=== PATIENT | female | born 1980 | race African-American/Black ===

== ENCOUNTER 2017-01-28 16:58 | Emergency (ER) | payer OTHER ==
[~2017-01-28] VITALS: Ht 172.7 cm; Wt 82.0 kg
[~2017-01-28 16:58] MED LIST: METH250T11
[2017-01-28 17:00] VITALS: BP 144/77
== END 2017-01-28 19:30 | disposition left against medical advice (07) ==
LOC: ER 16:59
DX: F10.129 Alcohol abuse with intoxication, unspecified (principal); Z53.21 Procedure and treatment not carried out due to patient leaving prior to being seen by health care provider

== ENCOUNTER 2017-03-10 00:41 | Emergency (ER) | payer OTHER | END 2017-03-10 01:00 | disposition left against medical advice (07) | LOC: ER 00:57 | DX: R41.82 Altered mental status, unspecified (principal); Z53.21 Procedure and treatment not carried out due to patient leaving prior to being seen by health care provider ==

== ENCOUNTER 2017-03-28 15:59 | Emergency (ER) | payer OTHER | END 2017-03-28 20:00 | disposition left against medical advice (07) | LOC: ER 19:59 | DX: R05 Cough (principal); Z53.21 Procedure and treatment not carried out due to patient leaving prior to being seen by health care provider ==

== ENCOUNTER 2017-05-03 18:21 | Emergency (ER) | payer OTHER ==
[~2017-05-03] VITALS: Ht 170.2 cm; Wt 110.0 kg
[2017-05-03 22:02] VITALS: BP 122/67
== END 2017-05-03 22:06 | disposition home or self-care (01) ==
LOC: ER 18:36
DX: F10.129 Alcohol abuse with intoxication, unspecified (principal); Y90.6 Blood alcohol level of 120-199 mg/100 ml; G92 Toxic encephalopathy; F17.210 Nicotine dependence, cigarettes, uncomplicated
CPT/HCPCS: 36415; 99283; G0482

== ENCOUNTER 2017-05-19 00:58 | Emergency (ER) | payer OTHER ==
[~2017-05-19] VITALS: Ht 170.2 cm; Wt 77.0 kg
[2017-05-19 01:21] VITALS: BP 134/84
== END 2017-05-19 02:05 | disposition left against medical advice (07) ==
LOC: ER 00:58
DX: F10.10 Alcohol abuse, uncomplicated (principal); Z53.21 Procedure and treatment not carried out due to patient leaving prior to being seen by health care provider

== ENCOUNTER 2017-06-23 19:28 | Emergency (ER) | payer OTHER ==
[~2017-06-23] VITALS: Ht 170.2 cm; Wt 89.0 kg
[2017-06-23] MEDS ORDERED: CYANOCOBALAMIN 1000MCG/ML VIAL IM ONE (21:30)
[2017-06-23] MEDS ORDERED: SODIUM CHLORIDE 0.9% 1,000 ML IV ONE (21:30)
[2017-06-23 21:46] LABS: CLARITY URINE CLOUDY (CLEAR); COLOR URINE YELLOW (YELLOW); GLUCOSE URINE NEGATIVE (NEGATIVE); KETONES URINE NEGATIVE (NEGATIVE); LEUKOCYTE ESTERASE URINE TRACE (NEGATIVE); NITRITE URINE NEGATIVE (NEGATIVE); OCCULT BLOOD URINE NEGATIVE (NEGATIVE); PROTEIN URINE NEGATIVE (NEGATIVE); SPECIFIC GRAVITY URINE 1.008 (1.005-1.030); UROBILINOGEN URINE 0.2 E.U./dL (0.2-1.0)
[2017-06-23 21:46] LABS: BASOPHILS % 0.5 % (0.0-2.0); EOSINOPHILS % 0.4 % (0.0-5.0); HEMATOCRIT. 26.8 % (36.0-48.0); HEMOGLOBIN. 7.9 g/dL (12.0-16.0); LYMPHOCYTES % 44.1 % (20.0-50.0); MEAN CORPUSCULAR HEMOGLOBIN 19.4 pg (28.0-32.0); MEAN PLATELET VOLUME 8.7 fl (7.4-10.4); MONOCYTES % 5.8 % (2.0-8.0); NEUTROPHILS % 49.2 % (40.0-76.0); PLATELET 232 x1000/uL (130-400); RED BLOOD CELL COUNT 4.06 mill/uL (4.2-5.4); RED CELL DISTRIBUTION WIDTH 21.8 % (11.6-14.6)
[2017-06-23 21:52] LABS: CHLORIDE 105 mEq/L (98-107)
[2017-06-23 21:54] LABS: PROTHROMBIN TIME 10.5 sec (9.4-11.6)
[2017-06-23 21:56] LABS: CARBON DIOXIDE 23 mEq/L (21-32)
[2017-06-23 21:58] LABS: ETHANOL BLOOD 212 mg/dL
[2017-06-23 21:58] LABS: *AMPHETAMINES SCREEN URINE NEGATIVE (NEGATIVE); *BARBITURATES SCREEN URINE NEGATIVE (NEGATIVE); *BENZODIAZEPINES SCREEN URINE NEGATIVE (NEGATIVE); *COCAINE SCREEN URINE NEGATIVE (NEGATIVE); CANNABINOID URINE SCREEN NEGATIVE (NEGATIVE); METHADONE URINE SCREEN NEGATIVE (NEGATIVE); OPIATES URINE SCREEN NEGATIVE (NEGATIVE)
[2017-06-23 22:02] LABS: PHENCYCLIDINE URINE SCREEN PRESUMTIVE POSITIVE (NEGATIVE)
[2017-06-23 22:36] LABS: PLATELET ESTIMATE NORMAL
[2017-06-23 23:34] VITALS: BP 157/97
== END 2017-06-24 00:17 | disposition home or self-care (01) ==
LOC: ER 20:47
DX: F10.229 Alcohol dependence with intoxication, unspecified (principal); I10 Essential (primary) hypertension
CPT/HCPCS: 36415; 80053; 80305; 81001; 83036; 83690; 85025; 85610; 85651; 93005; 96360; 96361; 96372; 99285; G0482; J3420; J7030; Z7610; A4315

== ENCOUNTER 2017-07-22 00:26 | Emergency (ER) | payer SELFPAY ==
[~2017-07-22] VITALS: Ht 165.1 cm; Wt 137.0 kg
[2017-07-22 01:59] VITALS: BP 105/52
[2017-07-22] MEDS ORDERED: FOLIC ACID 1 MG, THIAMINE HCL 100 MG, MVI, ADULT NO.1 10 ML in DEXTROSE 5% WATER 1,000 ML IV ONE ×4 (03:45)
[2017-07-22 04:01] LABS: BASOPHILS % 0.7 % (0.0-2.0); EOSINOPHILS % 0.2 % (0.0-5.0); HEMATOCRIT. 32.2 % (36.0-48.0); HEMOGLOBIN. 9.7 g/dL (12.0-16.0); LYMPHOCYTES % 51.2 % (20.0-50.0); MEAN CORPUSCULAR HEMOGLOBIN 19.8 pg (28.0-32.0); MEAN CORPUSCULAR VOLUME 65.6 fL (81.0-99.0); MEAN PLATELET VOLUME 9.2 fl (7.4-10.4); MONOCYTES % 4.5 % (2.0-8.0); NEUTROPHILS % 43.4 % (40.0-76.0); PLATELET 303 x1000/uL (130-400); RED BLOOD CELL COUNT 4.91 mill/uL (4.2-5.4); RED CELL DISTRIBUTION WIDTH 21.3 % (11.6-14.6)
[2017-07-22 04:06] LABS: CARBON DIOXIDE 27 mEq/L (21-32); CHLORIDE 104 mEq/L (98-107); ETHANOL BLOOD 154 mg/dL
[2017-07-22] MEDS ORDERED: THIAMINE HCL 100 MG, MVI, ADULT NO.1 10 ML in DEXTROSE 5% WATER 1,000 ML IV NR ×3 (04:15)
== END 2017-07-22 06:28 | disposition home or self-care (01) ==
LOC: ER 00:34
DX: F10.129 Alcohol abuse with intoxication, unspecified (principal); F12.10 Cannabis abuse, uncomplicated; I10 Essential (primary) hypertension; F17.290 Nicotine dependence, other tobacco product, uncomplicated; Z87.440 Personal history of urinary (tract) infections
CPT/HCPCS: 36415; 80053; 80307; 80329; 85025; 99284; G0482; J3411; J3490; J7070; Z7610

== ENCOUNTER 2017-08-18 15:47 | Emergency (ER) | payer SELFPAY ==
[~2017-08-18] VITALS: Ht 170.2 cm; Wt 90.0 kg
[2017-08-18 15:58] VITALS: BP 130/62
== END 2017-08-18 16:29 | disposition left against medical advice (07) ==
LOC: ER 15:47
DX: F10.129 Alcohol abuse with intoxication, unspecified (principal); Z53.21 Procedure and treatment not carried out due to patient leaving prior to being seen by health care provider; Y90.9 Presence of alcohol in blood, level not specified

== ENCOUNTER 2017-10-10 19:27 | Emergency (ER) | payer SELFPAY ==
[~2017-10-10] VITALS: Ht 170.2 cm; Wt 91.0 kg
[2017-10-10 19:29] VITALS: BP 143/59
== END 2017-10-10 22:44 | disposition left against medical advice (07) ==
LOC: ER 19:39
DX: Z53.21 Procedure and treatment not carried out due to patient leaving prior to being seen by health care provider (principal)

== ENCOUNTER 2017-12-13 00:05 | Emergency (ER) | payer MEDICAID ==
[~2017-12-13] VITALS: Ht 170.2 cm; Wt 90.0 kg
[2017-12-13] MEDS ORDERED: IBUPROFEN 600MG TABLET PO ONE (05:15)
[2017-12-13] MEDS ORDERED: ACETAMINOPHEN 325MG TABLET PO ONE (07:00)
[2017-12-13] MEDS ORDERED: LIDOCAINE HCL 1% 20ML VIAL (Pyxis) INJ INFIL ONE (07:00)
[2017-12-13] MEDS ORDERED: BACITRACIN ZINC OINT UDPKT TOP ONE (08:00)
[2017-12-13 08:15] VITALS: BP 134/71
== END 2017-12-13 08:43 | disposition home or self-care (01) ==
LOC: ER 00:05
DX: R51 Headache (principal); S01.511A Laceration without foreign body of lip, initial encounter; W01.0XXA Fall on same level from slipping, tripping and stumbling without subsequent striking against object, initial encounter; Y93.89 Activity, other specified; Y92.89 Other specified places as the place of occurrence of the external cause; I10 Essential (primary) hypertension; F17.210 Nicotine dependence, cigarettes, uncomplicated; Z98.890 Other specified postprocedural states
CPT/HCPCS: 12011; 99283; J3490; Z7610

== ENCOUNTER 2018-05-15 21:38 | Emergency (ER) | payer MEDICAID ==
[~2018-05-15] VITALS: Ht 162.6 cm; Wt 95.0 kg
[~2018-05-15 21:38] MED LIST changes: -METH250T11; +METH250T3
[2018-05-15 21:58] VITALS: BP 143/101
== END 2018-05-16 01:33 | disposition left against medical advice (07) ==
LOC: ER 21:38
DX: F10.129 Alcohol abuse with intoxication, unspecified (principal); Z53.21 Procedure and treatment not carried out due to patient leaving prior to being seen by health care provider

== ENCOUNTER 2018-07-16 19:13 | Emergency (ER) | payer MEDICAID ==
[~2018-07-16] VITALS: Ht 175.3 cm; Wt 109.0 kg
[2018-07-16] MEDS ORDERED: IBUPROFEN 600MG TABLET PO ONE (20:15)
[2018-07-16 21:44] LABS: CLARITY URINE CLEAR (CLEAR); COLOR URINE YELLOW (YELLOW); KETONES URINE NEGATIVE (NEGATIVE); LEUKOCYTE ESTERASE URINE 2+ (NEGATIVE); NITRITE URINE NEGATIVE (NEGATIVE); OCCULT BLOOD URINE 1+ (NEGATIVE); PROTEIN URINE NEGATIVE (NEGATIVE); SPECIFIC GRAVITY URINE 1.003 (1.005-1.030); UROBILINOGEN URINE 0.2 E.U./dL (0.2-1.0)
[2018-07-16 21:59] LABS: *AMPHETAMINES SCREEN URINE NEGATIVE (NEGATIVE); *BENZODIAZEPINES SCREEN URINE NEGATIVE (NEGATIVE); *COCAINE SCREEN URINE NEGATIVE (NEGATIVE)
[2018-07-16 22:00] LABS: *BARBITURATES SCREEN URINE NEGATIVE (NEGATIVE); CANNABINOID URINE SCREEN NEGATIVE (NEGATIVE); METHADONE URINE SCREEN NEGATIVE (NEGATIVE); OPIATES URINE SCREEN NEGATIVE (NEGATIVE)
[2018-07-16 22:02] LABS: PHENCYCLIDINE URINE SCREEN PRESUMTIVE POSITIVE (NEGATIVE)
[2018-07-16 22:03] LABS: BASOPHILS % 0.4 % (0.0-2.0); EOSINOPHILS % 0.6 % (0.0-5.0); HEMATOCRIT. 28.3 % (36.0-48.0); HEMOGLOBIN. 8.5 g/dL (12.0-16.0); LYMPHOCYTES % 45.8 % (20.0-50.0); MEAN CORPUSCULAR VOLUME 69.9 fL (81.0-99.0); NEUTROPHILS % 47.2 % (40.0-76.0); PLATELET 249 x1000/uL (130-400); RED BLOOD CELL COUNT 4.05 mill/uL (4.2-5.4); RED CELL DISTRIBUTION WIDTH 20.3 % (11.6-14.6)
[2018-07-16 22:11] LABS: CHLORIDE 105 mEq/L (98-107); HCG SCREEN NEGATIVE
[2018-07-16 22:26] LABS: CREATINE KINASE 151 IU/L (26-192); ETHANOL BLOOD 152 mg/dL
[2018-07-16 23:07] LABS: PLATELET ESTIMATE NORMAL
[2018-07-17 00:13] VITALS: BP 118/65
== END 2018-07-17 01:02 | disposition home or self-care (01) ==
LOC: ER 19:13
DX: F10.129 Alcohol abuse with intoxication, unspecified (principal); Y90.6 Blood alcohol level of 120-199 mg/100 ml; M79.662 Pain in left lower leg; F16.10 Hallucinogen abuse, uncomplicated; I10 Essential (primary) hypertension; N39.0 Urinary tract infection, site not specified; D50.9 Iron deficiency anemia, unspecified; E87.6 Hypokalemia
CPT/HCPCS: 36415; 80053; 80305; 80329; 81003; 82550; 82962; 83605; 84703; 85025; 93971; 99285; G0482

== ENCOUNTER 2018-07-25 21:14 | Emergency (ER) | payer MEDICAID ==
[~2018-07-25] VITALS: Ht 172.7 cm; Wt 100.0 kg
[2018-07-25] MEDS ORDERED: SODIUM CHLORIDE 0.9% 1,000 ML IV ONE (21:31)
[2018-07-25] MEDS ORDERED: ONDANSETRON HCL 4MG/2ML INJ IV ONE (21:45)
[2018-07-25 23:11] LABS: HCG SCREEN NEGATIVE
[2018-07-25 23:20] LABS: *AMPHETAMINES SCREEN URINE NEGATIVE (NEGATIVE); *BARBITURATES SCREEN URINE NEGATIVE (NEGATIVE); *BENZODIAZEPINES SCREEN URINE NEGATIVE (NEGATIVE); *COCAINE SCREEN URINE NEGATIVE (NEGATIVE); METHADONE URINE SCREEN NEGATIVE (NEGATIVE)
[2018-07-25 23:22] LABS: CANNABINOID URINE SCREEN NEGATIVE (NEGATIVE); OPIATES URINE SCREEN NEGATIVE (NEGATIVE)
[2018-07-26 00:27] LABS: PHENCYCLIDINE URINE SCREEN PRESUMTIVE POSITIVE (NEGATIVE)
[2018-07-26] MEDS ORDERED: IBUPROFEN 600MG TABLET PO ONE (06:30)
[2018-07-26 06:43] VITALS: BP 117/74
== END 2018-07-26 07:04 | disposition home or self-care (01) ==
LOC: ER 21:14
DX: F10.129 Alcohol abuse with intoxication, unspecified (principal); Y90.7 Blood alcohol level of 200-239 mg/100 ml; G92 Toxic encephalopathy; I10 Essential (primary) hypertension; F16.10 Hallucinogen abuse, uncomplicated; E66.01 Morbid (severe) obesity due to excess calories; Z68.33 Body mass index [BMI] 33.0-33.9, adult
CPT/HCPCS: 36415; 70450; 80305; 81025; 84703; 96361; 96374; 99285; G0482; J2405; J7030

== ENCOUNTER 2018-09-19 21:16 | Emergency (ER) | payer MEDICAID, OTHER ==
[~2018-09-19] VITALS: Ht 170.2 cm; Wt 80.0 kg
[2018-09-19 21:53] VITALS: BP 174/114
== END 2018-09-19 22:19 | disposition left against medical advice (07) ==
LOC: ER 21:16
DX: F10.129 Alcohol abuse with intoxication, unspecified (principal); Z53.21 Procedure and treatment not carried out due to patient leaving prior to being seen by health care provider

== ENCOUNTER 2018-12-03 21:50 | Emergency (ER) | payer MEDICAID ==
[~2018-12-03] VITALS: Ht 170.2 cm; Wt 113.0 kg
[2018-12-03 22:15] VITALS: BP 136/99
== END 2018-12-04 05:28 | disposition left against medical advice (07) ==
LOC: ER 21:50
DX: Z53.21 Procedure and treatment not carried out due to patient leaving prior to being seen by health care provider (principal)

== ENCOUNTER 2018-12-19 13:48 | Emergency (ER) | payer MEDICAID ==
[~2018-12-19] VITALS: Ht 177.8 cm; Wt 100.0 kg
[2018-12-19 13:49] VITALS: BP 143/85
== END 2018-12-19 14:44 | disposition left against medical advice (07) ==
LOC: ER 14:40
DX: F10.229 Alcohol dependence with intoxication, unspecified (principal); Z53.21 Procedure and treatment not carried out due to patient leaving prior to being seen by health care provider

== ENCOUNTER 2018-12-23 14:44 | Emergency (ER) | payer MEDICAID ==
[~2018-12-23] VITALS: Ht 167.6 cm; Wt 110.0 kg
[2018-12-23] MEDS ORDERED: SODIUM CHLORIDE 0.9% 1,000 ML IV ONE (15:08)
[2018-12-23 16:18] LABS: *AMPHETAMINES SCREEN URINE NEGATIVE (NEGATIVE); *BARBITURATES SCREEN URINE NEGATIVE (NEGATIVE); *BENZODIAZEPINES SCREEN URINE NEGATIVE (NEGATIVE); *COCAINE SCREEN URINE NEGATIVE (NEGATIVE); METHADONE URINE SCREEN NEGATIVE (NEGATIVE)
[2018-12-23 16:19] LABS: CANNABINOID URINE SCREEN NEGATIVE (NEGATIVE); OPIATES URINE SCREEN NEGATIVE (NEGATIVE)
[2018-12-23 16:33] LABS: PHENCYCLIDINE URINE SCREEN PRESUMTIVE POSITIVE (NEGATIVE)
[2018-12-23 16:40] LABS: BASOPHILS % 0.9 % (0.0-2.0); EOSINOPHILS % 0.1 % (0.0-5.0); HEMATOCRIT. 28.3 % (36.0-48.0); HEMOGLOBIN. 8.4 g/dL (12.0-16.0); LYMPHOCYTES % 28.3 % (20.0-50.0); MEAN CORPUSCULAR HEMOGLOBIN 20.3 pg (28.0-32.0); MEAN CORPUSCULAR VOLUME 68.5 fL (81.0-99.0); MEAN PLATELET VOLUME 9.6 fl (7.4-10.4); MONOCYTES % 4.7 % (2.0-8.0); PLATELET 280 x1000/uL (130-400); RED BLOOD CELL COUNT 4.13 mill/uL (4.2-5.4); RED CELL DISTRIBUTION WIDTH 20.2 % (11.6-14.6)
[2018-12-23 16:45] LABS: CHLORIDE 104 mEq/L (98-107)
[2018-12-23 16:48] LABS: ETHANOL BLOOD 77 mg/dL
[2018-12-23 16:58] LABS: HCG SCREEN NEGATIVE
[2018-12-23 18:30] VITALS: BP 116/68
[2018-12-23 19:56] LABS: PLATELET ESTIMATE NORMAL
== END 2018-12-23 19:13 | disposition home or self-care (01) ==
LOC: ER 14:44
DX: F10.129 Alcohol abuse with intoxication, unspecified (principal); Y90.3 Blood alcohol level of 60-79 mg/100 ml; F16.129 Hallucinogen abuse with intoxication, unspecified
CPT/HCPCS: 36415; 70450; 80053; 80305; 80320; 84703; 85025; 93005; 96360; 99284; J7030; G0480

== ENCOUNTER 2019-02-16 18:32 | Emergency (ER) | payer MEDICAID, OTHER ==
[~2019-02-16] VITALS: Ht 167.6 cm; Wt 116.0 kg
[2019-02-16 18:40] VITALS: BP 120/66
== END 2019-02-16 23:00 | disposition home or self-care (01) ==
LOC: ER 18:58
DX: F10.229 Alcohol dependence with intoxication, unspecified (principal); R47.81 Slurred speech; I10 Essential (primary) hypertension; Z88.8 Allergy status to other drugs, medicaments and biological substances; Y90.9 Presence of alcohol in blood, level not specified
CPT/HCPCS: 99283; Z7610

== ENCOUNTER 2019-02-19 20:26 | Emergency (ER) | payer MEDICAID ==
[~2019-02-19] VITALS: Ht 167.6 cm; Wt 118.0 kg
[2019-02-19] MEDS ORDERED: ONDANSETRON 4MG ODT PO ONE (21:30)
[2019-02-19] MEDS ORDERED: HALOPERIDOL LACTATE 5MG/ML VIAL IM ONE (22:00)
[2019-02-20] MEDS ORDERED: LORAZEPAM 2MG/ML CPJ IM ONE (01:45)
[2019-02-20] MEDS ORDERED: DIPHENHYDRAMINE 50MG/ML VIAL IM ONE (01:45)
[2019-02-20 06:30] VITALS: BP 140/81
== END 2019-02-20 07:25 | disposition home or self-care (01) ==
LOC: ER 20:26
DX: F10.10 Alcohol abuse, uncomplicated (principal); I10 Essential (primary) hypertension; Z88.8 Allergy status to other drugs, medicaments and biological substances; Z79.899 Other long term (current) drug therapy; Y90.9 Presence of alcohol in blood, level not specified
CPT/HCPCS: 81025; 96372; 99283; J1200; J1630; Q0162

== ENCOUNTER 2019-04-04 15:41 | Emergency (ER) | payer MEDICAID ==
[~2019-04-04] VITALS: Ht 177.8 cm; Wt 110.0 kg
[2019-04-05 03:00] VITALS: BP 117/74
== END 2019-04-05 03:15 | disposition home or self-care (01) ==
LOC: ER 15:41
DX: F10.229 Alcohol dependence with intoxication, unspecified (principal); Y90.9 Presence of alcohol in blood, level not specified; I10 Essential (primary) hypertension; Z78.1 Physical restraint status
CPT/HCPCS: 99284

== ENCOUNTER 2019-05-23 15:22 | Emergency (ER) | payer MEDICAID ==
[~2019-05-23] VITALS: Ht 170.2 cm; Wt 90.0 kg
[2019-05-23 15:27] VITALS: BP 151/87
== END 2019-05-24 12:13 | disposition left against medical advice (07) ==
LOC: ER 05-24 10:09
DX: Z53.21 Procedure and treatment not carried out due to patient leaving prior to being seen by health care provider (principal)

== ENCOUNTER 2019-09-08 15:34 | Emergency (ER) | payer SELFPAY ==
[~2019-09-08] VITALS: Ht 170.2 cm; Wt 136.0 kg
[2019-09-08 16:17] VITALS: BP 149/97
== END 2019-09-08 16:19 | disposition home or self-care (01) ==
LOC: ER 15:34
DX: F10.129 Alcohol abuse with intoxication, unspecified (principal); G89.29 Other chronic pain; M79.605 Pain in left leg; I10 Essential (primary) hypertension; Z79.899 Other long term (current) drug therapy; Z88.8 Allergy status to other drugs, medicaments and biological substances; Y90.9 Presence of alcohol in blood, level not specified
CPT/HCPCS: 99283